=== PATIENT | female | born 1995 | race Two or more races ===

== ENCOUNTER 2021-12-05 07:00 | Inpatient (IN) | payer OTHER ==
[~2021-12-05] VITALS: Ht 165.1 cm; Wt 75.3 kg
[2021-12-05] MEDS ORDERED: PRENATAL TABLE1 EAC1 PO (07:06)
== END 2021-12-07 13:18 | disposition home or self-care (01) | DRG 807 ==
LOC: LDR 07:00 → OB/GYN 07:00
PROVIDERS: ADMIT Obstetrics & Gynecology; ATTEND Obstetrics & Gynecology
PROC: 10E0XZZ Delivery of Products of Conception, External Approach (ICD-10-PCS; principal; 2021-12-05)
PROC: 0W8NXZZ Division of Female Perineum, External Approach (ICD-10-PCS; 2021-12-05)
PROC: 4A1HXFZ Monitoring of Products of Conception, Cardiac Rhythm, External Approach (ICD-10-PCS; 2021-12-05)
DX: O80 Encounter for full-term uncomplicated delivery (principal); Z37.0 Single live birth; Z3A.38 38 weeks gestation of pregnancy

== ENCOUNTER 2023-09-11 06:45 | Day surgery (SDC) | payer OTHER ==
[2023-09-07 10:18] LABS: URINE APPEARANCE Cloudy; URINE BILIRRUBIN Negative (NEGATIVE); URINE BLOOD Trace; URINE COLOR Yellow; URINE GLUCOSE Negative (NEGATIVE); URINE LEUKOCYTE Moderate; URINE NITRATE Negative; URINE PROTEIN Negative (NEGATIVE); URINE UROBILINOGEN 0.2 E.U./dl
[2023-09-07 10:22] LABS: HEMOGLOBIN 11.9 g/dL (12.0-15.00); MEAN CELL VOLUME 84.9 fL (80.00-100.00); MEAN CORPUSCULAR HEMOGLOBIN 27.3 pg (27.00-32.0); MEAN CORPUSCULAR HGB CONC 32.1 g/dl (32.0-36.0); PLATELET COUNT 239 K/uL (150-450); RED BLOOD COUNT 4.35 M/uL (4.00-6.00); URINE EPITHELIAL CELLS 49.7 uL (0.0-38.8); URINE WBC 62.7 uL (0.0-23.2)
[2023-09-07 10:40] LABS: INR 0.98; PARTIAL THROMBOPLASTIN TIME 27.4 SECONDS (22.0-34.0); PROTHROMBIN TIME 10.3 SECONDS (9.0-11.5)
[2023-09-07 10:43] LABS: CALCIUM 8.5 mg/dL (8.5-10.1); CREATININE SERUM 0.59 mg/dL (0.55-1.02); GFR 123.21; POTASSIUM 4.22 mEq/L (3.5-5.1)
[~2023-09-11 06:45] MED LIST: PRENATAL TABLE1 EAC1 PO
== END 2023-09-11 18:35 | disposition home or self-care (01) ==
LOC: CIR.AMB 06:45
PROVIDERS: ATTEND Obstetrics & Gynecology
DX: N75.0 Cyst of Bartholin's gland (principal); N75.1 Abscess of Bartholin's gland; Z20.822 Contact with and (suspected) exposure to COVID-19